=== PATIENT | female | born 1945 | race Caucasian/White ===

== ENCOUNTER → 2018-11-17 11:32 | Day surgery (SDC) | payer MEDICARE ==
[~2018-11-17 11:32] MED LIST: Artificial Tear OPHTH.OINT* 3.5 GM ONE; Bupivacaine 0.25% SDV PF* 10 ML VIAL INJ ONE; Clindamycin 900 MG IVPREMIX(* 900 MG/50 ML SDV IV ONE; Lactated Ringers 1000 ML Bag* 1,000 ML IV SCH; Lidocain 1% EPI 1:100,000 * 30 ML MDV ONE; Mepivacaine 1% (10 MG/ML)* 30 ML SDV ONE; Mepivacaine 2% MPF (20 MG/ML)* 20 ML MPF ONE; Methylene Blue 0.5 %* 50 MG/10 ML AMP IV ONE; Midazolam* 1 MG/ML 5 ML VIAL (5 MG) ONE; Mineral Oil Sterile, TOPICAL* 25 ML BTL ONE; Propofol* 10 MG/ML 20 ML BTL ONE; fentaNYL* 50 MCG/ML 2 ML VIAL (100 MCG VIAL) ONE; oxyCODONE TAB* 5 MG TAB PO PRN
[2018-11-17 16:32] VITALS: BP 180/76
== END | disposition home or self-care (01) ==
LOC: OR 11:32
PROVIDERS: ATTEND Plastic Surgery
DX: D18.01 Hemangioma of skin and subcutaneous tissue (principal); J45.909 Unspecified asthma, uncomplicated; K21.9 Gastro-esophageal reflux disease without esophagitis; E03.9 Hypothyroidism, unspecified; F41.8 Other specified anxiety disorders; Z85.6 Personal history of leukemia; Z85.72 Personal history of non-Hodgkin lymphomas
CPT/HCPCS: 88305; A9270-GY; J0670; J2250; J2704; J3010; J3490

== ENCOUNTER 2022-10-16 14:59 | Inpatient (IN) ==
[2022-10-16 15:29] LABS: ABS Basophils 0.1 10^3/uL (0.0-0.1); ABS Eosinophils 0.5 10^3/uL (0.0-0.5); ABS Lymphocytes 2.4 10^3/uL (1.0-4.8); ABS Monocytes 1.1 10^3/uL (0.0-0.9); ABS Neutrophils 4.8 10^3/uL (1.5-7.6); ABS Nucleated RBC 0.01 10^3/ul; Eosinophil % 5.1 %; Hematocrit 41.8 % (35-45); Hemoglobin 13.9 g/dL (11.5-14.3); Lymphocyte % 27.4 %; Mean Corpuscular Hemoglobin 30.2 pg (27-33); Mean Corpuscular Hgb Conc 33.2 g/dL (31-36); Mean Platelet Volume 6.9 fL (7.5-11.2); Nucleated Red Blood Cells % 0.1 /100 WBC (0.0-0.4); Platelet Count 743 10^3/uL (150-450); Red Blood Count 4.59 10^6/uL (3.63-4.92); Red Cell Distribution Width 14.4 % (12-17); White Blood Count 8.9 10^3/uL (3.8-11.8)
[2022-10-16 15:36] LABS: INR 1.87 (0.88-1.18)
[2022-10-16 16:01] LABS: Albumin 3.7 g/dL (3.2-5.2); Albumin/Globulin Ratio 1.4 (1-3); Calcium 9.2 mg/dL (8.6-10.3); Creatinine, Serum 0.74 mg/dL (0.51-0.95); Globulin 2.7 g/dL (2-4); Total Bilirubin 0.5 mg/dL (0.2-1.0); Total Protein 6.4 g/dL (6.4-8.9); eGFR CKD-EPI 82.8 (>60)
[2022-10-16 17:00] LABS: High Sensitivity Troponin 1 Hr 10 pg/mL (<15)
[2022-10-16 17:05] LABS: C Reactive Protein 45.79 mg/L (<8.01)
[2022-10-16] MEDS ORDERED: Albuterol HFA INHALER 8 gm MDI INH PRN (18:56)
[2022-10-16] MEDS ORDERED: Senna TAB 8.6 mg TAB PO PRN (19:02)
[2022-10-16] MEDS ORDERED: Magnesium Hydroxide LIQ 30 ML UDC PO PRN (19:02)
[2022-10-16] MEDS ORDERED: Polyethylene Glycol 3350 17 GM PACKET PO PRN (19:02)
[2022-10-16] MEDS ORDERED: Dextran 70/Hypromellose Tears Eye Drops 15 ml BTL (for Artificials Tears) BOTH EYES PRN (19:13)
[2022-10-16 19:40] LABS: Urine Appearance Turbid; Urine Bilirubin Negative (Negative); Urine Blood Negative (Negative); Urine Color Yellow; Urine Glucose Negative (Negative); Urine Ketones Trace (Negative); Urine Nitrite Negative (Negative); Urine Protein Negative (Negative); Urine Specific Gravity 1.012 (1.002-1.030); Urine Urobilinogen Negative (Negative)
[2022-10-16 21:39] LABS: Magnesium 2.2 mg/dL (1.9-2.7)
[2022-10-16] MEDS: Fluticasone NASAL SPRAY 50MCG 16 gm SPRAY BTL INTRANASAL SCH (22:48)
[2022-10-16] MEDS: [UNRECOGNIZED DRUG - OTHER] PO SCH (22:48)
[2022-10-16] MEDS: Enoxaparin 80 MG/0.8 ML SYR SUBCUT SCH (22:57)
[2022-10-17] MEDS: Cholecalciferol (VIT D3) 1,000 unit TAB PO SCH ×3 (00:56→21:05)
[2022-10-17 06:23] LABS: ABS Basophils 0.1 10^3/uL (0.0-0.1); ABS Eosinophils 0.6 10^3/uL (0.0-0.5); ABS Lymphocytes 2.3 10^3/uL (1.0-4.8); ABS Monocytes 1.2 10^3/uL (0.0-0.9); ABS Neutrophils 6.6 10^3/uL (1.5-7.6); ABS Nucleated RBC 0.01 10^3/ul; Eosinophil % 5.4 %; Hematocrit 41.7 % (35-45); Hemoglobin 13.8 g/dL (11.5-14.3); Lymphocyte % 21.2 %; Mean Corpuscular Hemoglobin 29.9 pg (27-33); Mean Corpuscular Volume 90.6 fL (80-97); Mean Platelet Volume 7.7 fL (7.5-11.2); Nucleated Red Blood Cells % 0.1 /100 WBC (0.0-0.4); Platelet Count 710 10^3/uL (150-450); Red Cell Distribution Width 14.6 % (12-17); White Blood Count 10.8 10^3/uL (3.8-11.8)
[2022-10-17 06:46] LABS: Anion Gap 7 mmol/L (2-16); Blood Urea Nitrogen 12 mg/dL (6-24); CO2 Carbon Dioxide 29 mmol/L (22-32); Calcium 8.8 mg/dL (8.6-10.3); Chloride 104 mmol/L (101-111); Creatinine, Serum 0.82 mg/dL (0.51-0.95); Glucose 93 mg/dL (70-100); Potassium 4.8 mmol/L (3.5-5.0); Sodium 140 mmol/L (135-145); eGFR CKD-EPI 73.2 (>60)
[2022-10-17 08:34] LABS: TSH Ultra Thyroid Stim Horm 2.04 mcIU/mL (0.34-5.60)
[2022-10-17 08:45] LABS: Folate > 20.00 ng/mL (5.90-24.80)
[2022-10-17 09:48] LABS: Ferritin 481.1 ng/mL (11-307)
[2022-10-17] MEDS: Enoxaparin 80 MG/0.8 ML SYR SUBCUT SCH ×2 (11:11→21:10)
[2022-10-17] MEDS: [UNRECOGNIZED DRUG - OTHER] PO SCH (11:12)
[2022-10-17] MEDS: [UNRECOGNIZED DRUG - MIXTURE] PO SCH (11:12)
[2022-10-17] MEDS: Triamcinolone 0.025% OINT 15 GM TUBE TOPICAL SCH (11:12)
[2022-10-17 15:32] LABS: Body Fluid WBC 840 /mcL
[2022-10-17 16:18] LABS: Body Fluid Appearance Bloody; Body Fluid Color Red; Body Fluid Source Pleural Fluid
[2022-10-17 18:11] LABS: Body Fluid Mono 2 %; Body Fluid Other Cells 8; Body Fluid Total Cells Counted 200
[2022-10-17 18:46] LABS: Vitamin B12 > 1450 pg/mL (180-914)
[2022-10-17] MEDS: [UNRECOGNIZED DRUG - OTHER] PO SCH (20:59)
[2022-10-17] MEDS: Fluticasone NASAL SPRAY 50MCG 16 gm SPRAY BTL INTRANASAL SCH (21:04)
[2022-10-18 06:39] LABS: ABS Eosinophils 0.4 10^3/uL (0.0-0.5); ABS Lymphocytes 3.5 10^3/uL (1.0-4.8); ABS Monocytes 1.2 10^3/uL (0.0-0.9); ABS Neutrophils 6.2 10^3/uL (1.5-7.6); ABS Nucleated RBC 0.01 10^3/ul; Eosinophil % 3.3 %; Hematocrit 42.2 % (35-45); Hemoglobin 13.9 g/dL (11.5-14.3); Lymphocyte % 30.8 %; Mean Corpuscular Hemoglobin 29.7 pg (27-33); Mean Corpuscular Volume 89.9 fL (80-97); Mean Platelet Volume 7.3 fL (7.5-11.2); Nucleated Red Blood Cells % 0.1 /100 WBC (0.0-0.4); Platelet Count 675 10^3/uL (150-450); Red Blood Count 4.69 10^6/uL (3.63-4.92); Red Cell Distribution Width 14.5 % (12-17); White Blood Count 11.3 10^3/uL (3.8-11.8)
[2022-10-18] MEDS: Cholecalciferol (VIT D3) 1,000 unit TAB PO SCH ×2 (09:32→22:27)
[2022-10-18] MEDS: [UNRECOGNIZED DRUG - OTHER] PO SCH (09:33)
[2022-10-18] MEDS: Enoxaparin 80 MG/0.8 ML SYR SUBCUT SCH ×2 (09:33→22:30)
[2022-10-18] MEDS: [UNRECOGNIZED DRUG - MIXTURE] PO SCH (09:34)
[2022-10-18] MEDS: Triamcinolone 0.025% OINT 15 GM TUBE TOPICAL SCH (09:34)
[2022-10-18 13:11] LABS: High Sensitivity Troponin 1 Hr 9 pg/mL (<15)
[2022-10-18] MEDS: [UNRECOGNIZED DRUG - OTHER] PO SCH (22:28)
[2022-10-18] MEDS: Fluticasone NASAL SPRAY 50MCG 16 gm SPRAY BTL INTRANASAL SCH (22:30)
[2022-10-19 01:33] LABS: Anaplasma phagocytophilum Negative (Negative); B. miyamotoi PCR, B Negative (Negative); Babesia divergens/MO-1 Negative (Negative); Babesia ducani Negative (Negative); Ehrlichia chaffeensis Negative (Negative); Ehrlichia ewingii/canis Negative (Negative); Ehrlichia muris eauclairensis Negative (Negative)
[2022-10-19] MEDS: Cholecalciferol (VIT D3) 1,000 unit TAB PO SCH (08:33)
[2022-10-19] MEDS: [UNRECOGNIZED DRUG - OTHER] PO SCH (08:40)
[2022-10-19] MEDS: [UNRECOGNIZED DRUG - MIXTURE] PO SCH (08:40)
[2022-10-19] MEDS: Triamcinolone 0.025% OINT 15 GM TUBE TOPICAL SCH (08:41)
[2022-10-19 13:34] LABS: Lactate Dehydrogenase, BF 205 U/L
[2022-10-19 15:37] VITALS: BP 122/62
[2022-10-20 10:37] LABS: Albumin, BF 2.1 g/dL; Fluid Type, Albumin PLEURAL; Fluid Type, Protein, Total PLEURAL; Glucose, BF 126 mg/dL; Total Protein, BF 3.1 g/dL
== END 2022-10-19 16:15 | disposition home or self-care (01) | DRG 313 ==
LOC: ED 14:59 → EDHOLD 14:59 → SUATTDRO 17:10 → MEDTELE 21:41
PROVIDERS: ADMIT Internal Medicine; ATTEND Hospitalist